=== PATIENT | male | born 2000 | race Caucasian/White ===

== ENCOUNTER → 2023-07-24 13:56 | Outpatient (REF) | payer OTHER, SELFPAY | LOC: RAD 13:56 | PROVIDERS: ATTENDING PHYSICIAN Physician Assistant Medical | DX: N50.811 Right testicular pain (principal); R10.31 Right lower quadrant pain | CPT/HCPCS: 76870; 93976 ==

== ENCOUNTER 2024-05-25 09:46 | Emergency (ER) | payer OTHER, SELFPAY ==
[2024-05-25 10:00] VITALS: BP 110/76
--- NOTE | 2024-05-25 10:30 | ED.GENMED ---
History of Present Illness
<Elodia Summers, SITE DAMAGE PREVENTION TECHNICIAN - Last Filed: 05/26/24 17:44>
General
Chief Complaint: Abdominal Symptoms
Source: patient
Exam Limitations: none
Time Seen by Provider: 05/25/24 10:28
Nursing documentation reviewed up to this point in time: agreed with
History of Present Illness
History of Present Illness:
23 yo male presents for n/v/d with stools being 'red' at times. States redness in stools started prior to going to [place]. Mom at bedside begged him not to go due to the bloody diarrhea. Worse V/D started yesterday. Denies fever but has had chills.
Denies CP, SOB, Sukhi abdominal pain.
Last vomiting 30 minutes ago, last diarrhea stool 15 minutes ago.
Review of Systems
<Elodia Summers, SITE DAMAGE PREVENTION TECHNICIAN - Last Filed: 05/26/24 17:44>
Review of Systems
Allergies reviewed?: Yes
All Other Systems: ROS reviewed and negative except as documented in HPI and ROS
Phy Exam
<Elodia Summers, SITE DAMAGE PREVENTION TECHNICIAN - Last Filed: 05/26/24 17:44>
Physical Exam
Physical Exam:
GENERAL: No acute distress. A&Ox3.
CONSTITUTIONAL: Afebrile.
EYES: clear, conjunctivae normal
ENMT: moist mucus membranes, Pharynx nl
RESPIRATORY: Regular respirations, nonlabored, lungs clear.
CARDIOVASCULAR: Regular rate and rhythm, no murmurs, no rubs.
GI: Soft, nontender, normal BS
MUSCULOSKELETAL: Moves with ease. Well perfused.
SKIN: Warm, dry, pink
PSYCH: Normal mood and affect. Well kept, interactive and appropriate
NEUROLOGIC: Awake, alert and oriented. No focal neurological deficits
Course
<Elodia Summers, SITE DAMAGE PREVENTION TECHNICIAN - Last Filed: 05/26/24 17:44>
Orders/Labs/Results
Orders:
Orders
05/25/24 10:05
EKG [Electrocardiogram (*1)] Urgent
Reason for Study: Tachycardia
05/25/24 10:06
EKG- Treatment ONCE
05/25/24 10:36
0.9% Sodium Chloride 1000 ml [Nss] 1,000 ml IV BOLUS
Ondansetron Injectable [Zofran] 4 mg IV NOW STA
05/25/24 10:50
Complete Blood Count/With Diff Urgent
Comprehensive Metabolic Panel Urgent
Hepatitis A IgM Antibody Urgent
Comment: ADD ON
05/25/24 10:52
C DIFF [C difficile Antigen & Toxins] Urgent
MURIEL Source: Feces/Stool
Specimen Description:
Date Specimen was Collected: 05/25/24
Time Specimen was Collected: 10:51
Norovirus by PCR Urgent
[facility] Source: Feces/Stool
Specimen Description:
Date Specimen was Collected: 05/25/24
Time Specimen was Collected: 10:51
Stool Culture Urgent
[facility]URIEL Source: Feces/Stool
Specimen Description:
Date Specimen was Collected: 05/25/24
Time Specimen was Collected: 10:51
05/25/24 11:36
Add On- LAB Urgent
Tests Added?: Hepatitis panel
05/25/24 12:46
0.9% Sodium Chloride 1000 ml [Nss] 1,000 ml IV BOLUS
Abnormal Lab Results
05/25/24
10:50
WBC 12.6 H 10^3/uL
(4.8-10.8)
RBC 6.62 H 10^6/uL
(4.70-6.10)
Hgb 19.9 H g/dL
(13.0-18.0)
Hct 54.9 H %
(39.0-52.0)
Absolute Neuts (auto) 11.1 H 10^3/uL
(1.4-6.5)
Absolute Lymphs (auto) 0.4 L 10^3/uL
(1.2-3.4)
Absolute Monos (auto) 1.0 H 10^3/uL
(0.1-0.6)
Neutrophils % 87.8 H %
(42.2-75.2)
Lymphocytes % 3.1 L %
(20.5-51.1)
Carbon Dioxide 15 L mmol/L
(22-30)
BUN 39 H mg/dl
(9-20)
Glucose 179 H mg/dl
(70-99)
Total Bilirubin 2.7 H mg/dl
(0.2-1.3)
Total Protein 8.6 H g/dl
(6.3-8.2)
Albumin 5.3 H g/dl
(3.5-5.0)
05/25/24 10:50
05/25/24 10:50
Vital Signs
Initial and Last Documented VS:
Initial Vital Signs
Temp Pulse Resp BP Pulse Ox
97.8 F 158 16 110/76 95
05/25/24 10:00 05/25/24 10:00 05/25/24 10:00 05/25/24 10:00 05/25/24 10:00
Last Documented Vital Signs
Temp Pulse Resp BP Pulse Ox
97.8 F 66 18 111/70 99
05/25/24 10:00 05/25/24 13:44 05/25/24 13:44 05/25/24 13:43 05/25/24 13:44
Evelinlt;Everett Casanova, - Last Filed: 05/25/24 13:36>
Orders/Labs/Results
Orders:
Orders
05/25/24 10:05
EKG [Electrocardiogram (*1)] Urgent
Reason for Study: Tachycardia
05/25/24 10:06
EKG- Treatment ONCE
05/25/24 10:36
0.9% Sodium Chloride 1000 ml [Nss] 1,000 ml IV BOLUS
Ondansetron Injectable [Zofran] 4 mg IV NOW STA
05/25/24 10:50
Complete Blood Count/With Diff Urgent
Comprehensive Metabolic Panel Urgent
Hepatitis A IgM Antibody Urgent
Comment: ADD ON
05/25/24 10:52
C DIFF [C difficile Antigen & Toxins] Urgent
MURIEL Source: Feces/Stool
Specimen Description:
Date Specimen was Collected: 05/25/24
Time Specimen was Collected: 10:51
Norovirus by PCR Urgent
[facility]URI[facility] Source: Feces/Stool
Specimen Description:
Date Specimen was Collected: 05/25/24
Time Specimen was Collected: 10:51
Stool Culture Urgent
MURIEL Source: Feces/Stool
Specimen Description:
Date Specimen was Collected: 05/25/24
Time Specimen was Collected: 10:51
05/25/24 11:36
Add On- LAB Urgent
Tests Added?: Hepatitis panel
05/25/24 12:46
0.9% Sodium Chloride 1000 ml [Nss] 1,000 ml IV BOLUS
Abnormal Lab Results
05/25/24
10:50
WBC 12.6 H 10^3/uL
(4.8-10.8)
RBC 6.62 H 10^6/uL
(4.70-6.10)
Hgb 19.9 H g/dL
(13.0-18.0)
Hct 54.9 H %
(39.0-52.0)
Absolute Neuts (auto) 11.1 H 10^3/uL
(1.4-6.5)
Absolute Lymphs (auto) 0.4 L 10^3/uL
(1.2-3.4)
Absolute Monos (auto) 1.0 H 10^3/uL
(0.1-0.6)
Neutrophils % 87.8 H %
(42.2-75.2)
Lymphocytes % 3.1 L %
(20.5-51.1)
Carbon Dioxide 15 L mmol/L
(22-30)
BUN 39 H mg/dl
(9-20)
Glucose 179 H mg/dl
(70-99)
Total Bilirubin 2.7 H mg/dl
(0.2-1.3)
Total Protein 8.6 H g/dl
(6.3-8.2)
Albumin 5.3 H g/dl
(3.5-5.0)
05/25/24 10:50
05/25/24 10:50
Vital Signs
Initial and Last Documented VS:
Initial Vital Signs
Temp Pulse Resp BP Pulse Ox
97.8 F 158 16 110/76 95
05/25/24 10:00 05/25/24 10:00 05/25/24 10:00 05/25/24 10:00 05/25/24 10:00
Last Documented Vital Signs
Temp Pulse Resp BP Pulse Ox
97.8 F 66 18 111/70 99
05/25/24 10:00 05/25/24 13:44 05/25/24 13:44 05/25/24 13:43 05/25/24 13:44
<Elodia Summers, SITE DAMAGE PREVENTION TECHNICIAN - Last Filed: 05/26/24 17:44>
MDM/Problems Addressed
Differential Diagnosis Includes:
Norovirus, C diff, Crohn's, infectious colitis, traveller's diarrhea
MDM/Problems Addressed:
23 yo male presents for n/v/d with stools being 'red' at times. States redness in stools started prior to going to [place]. Mom at bedside begged him not to go due to the bloody diarrhea. Worse V/D started yesterday. Denies fever but has had chills.
Denies CP, SOB, Sukhi abdominal pain.
Last vomiting 30 minutes ago, last diarrhea stool 15 minutes ago.
Tachycardic rate 158 sinus initially
EKG: Sinus tachycardia heart rate 126.
11:00 AM:
CBC: WBC 12.6 with left shift
CMP: BUN 39, bicarb 15, glucose 179, total bilirubin 2.7.
Gap: 21
12:30 PM
Patient stools negative for for C. difficile and positive for norovirus. Patient and mother at bedside notified of results
Patient looking much better, cheeks are pink, he states he is feeling better
Case discussed with Dr. Casanova who examined pt and agrees pt stable to go home and follow up with GI.
Considered CT scan abd but pt has no significant abdominal pain, no fever, no significant abnormality in his blood work
Info sent to /GI hotline for close f/u
Stool cultures pending
Rx for Zofran sent to his pharmacy
He is tolerating po fluids
2:00 p.m.
Pt looking well, ambulated out with normal gait
<Elodia Summers SITE DAMAGE PREVENTION TECHNICIAN - Last Filed: 05/26/24 17:44>
*EKG
EKG Intrepretation Date: 05/25/24
Interpretation: abnormal
Heart Rate: 126
Rate: tachycardiac
Rhythm: sinus
[place]: normal axis
Interval: normal interval
QRS Pattern: normal QRS
Ischemia: no ischemia
<Everett Casanova DO - Last Filed: 05/25/24 13:36>
*Pulse Oximetry
Patient hypoxic: no
*Critical Care Note
Total Time (30-74mins, 75-104mins- exclusive of procedures): Not Applicable
ED Attending Note
<Elodia Summers SITE DAMAGE PREVENTION TECHNICIAN - Last Filed: 05/26/24 17:44>
-
Portions of this chart may have been created with voice recognition software.� Occasional wrong word or��sound alike� substitutions may have occurred due to the inherent limitations of voice recognition software.
<Everett Casanova DO - Last Filed: 05/25/24 13:36>
ED Attending Note
Patient seen and examined by attending physician: Yes
I performed the substantive portion of visit, reviewed & personally made and approve the management plan that is documented in note by myself or EPHRAIM.: Yes
ED Attending Note:
23-year-old male who presents with persistent diarrhea. Also reports has been he suspects his blood as has been red tinge. He recently traveled to [place]. He states that it is possible that he had some diarrhea before going to [place] on the unit
with some red tinge to it. On my assessment he has no pain. He states he feels much better after IV fluids. Exam: No tenderness. No distention. Awake and alert. Taking an ice chips on exam. Assessment and plan: Suspect this is infectious
related. Tested positive for norovirus and the rest of bacterial testing is pending. However consideration for inflammatory bowel disease should be made. I recommended he follow-up with gastroenterology. Message will be left on the outpatient
follow-up hotline. He has been seen by them in the past
Discharge Plan
Departure
Patient Disposition: Home (Routine Discharge)
Date of Disposition: 05/25/24
Time of Disposition: 13:36
Patient with high blood pressure during this ER visit?: No
Condition: Good
Discharge Problem:
Acute gastroenteropathy due to Norovirus, Bloody diarrhea
Instructions: Viral gastroenteritis in adults, Dehydration, Adult (DC), Nausea and Vomiting, Adult (DC)
Prescriptions:
New
ondansetron 4 mg tablet,disintegrating
4 mg PO Q8H PRN (Reason: nausea and vomiting) 4 Days Qty: 14 0RF
Referrals:
Dulce Mercado PA-C [Family Provider] -
Petra Marquez MD [Active] - Next open appointment
Activity Restrictions/Additional Instructions:
As we discussed, someone from the GI office will reach out to you to get you a follow-up visit for next week.
Drink at least six 8 ounce bottles of water/fluid (add electrolytes to some of it) daily until your diarrhea improves
Return here immediately for fever above 100.5, chills, worsening bloody diarrhea, abdominal pain, or feeling sicker in any way.
I sent a prescription to your pharmacy for Zofran to take as needed for nausea/vomiting.
Interventions
Interventions:
*Risk Screen - Suicide Last Done: 05/25/24 10:05
*General Assessment Last Done: 05/25/24 13:58
*Neglect/Abuse Screening Last Done: 05/25/24 10:05
*ED- Fall Risk Assessment Last Done: 05/25/24 13:58
*ED COVID-19 Vaccine History Last Done: 05/25/24 11:15
*Nursing Disposition Last Done: 05/25/24 13:58
[facility] Assessment Last Done: 05/25/24 11:15
Discharge Date and Time
Discharge Date/Time: 05/25/24 13:59
Print Language: ARGENTINE
[2024-05-25] MEDS: NSS 1000 IV ×2 (10:49→13:40)
[2024-05-25] MEDS: ZOFRAN 4 MG IV (10:58)
[2024-05-25 11:14] LABS: % Basophils 0.3 % (0-2); % Eosinophils 0.6 % (0-6); % Immature Granulocytes 0.3 % (0-0.5); % Lymphocytes 3.1 % (20.5-51.1); % Monocytes 7.9 % (1.7-9.3); % Neutrophils 87.8 % (42.2-75.2); Absolute Eosinophils 0.1 10^3/uL (0-0.7); Absolute Lymphocytes 0.4 10^3/uL (1.2-3.4); Absolute Neutrophils 11.1 10^3/uL (1.4-6.5); Hematocrit 54.9 % (39.0-52.0); Hemoglobin 19.9 g/dL (13.0-18.0); Mean Corp Hgb Conc. 36.2 g/dL (33.0-37.0); Mean Corpuscular Hgb 30.1 pg (27.0-31.0); Mean Corpuscular Volume 82.9 fL (80.0-94.0); Mean Platelet Volume 9.5 fL (7.4-10.4); Nucleated Red Blood Cells % 0 % (-); Platelet Count 256 10^3/uL (130-400); Red Blood Cell Count 6.62 10^6/uL (4.70-6.10); Red Cell Dist. Width 12.7 % (11.5-14.5); White Blood Cell Count 12.6 10^3/uL (4.8-10.8)
[2024-05-25 11:21] LABS: AST (SGOT) 32 U/L (17-59); Albumin 5.3 g/dl (3.5-5.0); Alkaline Phosphatase 79 U/L (38-126); Blood Urea Nitrogen 39 mg/dl (9-20); Calcium 10.1 mg/dl (8.4-10.2); Carbon Dioxide 15 mmol/L (22-30); Chloride 103 mmol/L (98-107); Glucose 179 mg/dl (70-99); Sodium 139 mmol/L (135-145); Total Bilirubin 2.7 mg/dl (0.2-1.3); Total Protein 8.6 g/dl (6.3-8.2); eGFR > 60.00
[2024-05-25 11:40] LABS: ALT (SGPT) 31 U/L (0-50)
[2024-05-25 11:51] VITALS: BP 117/83
[2024-05-25 12:00] VITALS: BP 120/81
[2024-05-25 13:00] VITALS: BP 122/91
[2024-05-25 13:43] VITALS: BP 111/70; BMI 22.4
[2024-05-27 18:11] LABS: Hepatitis A IgM Antibody Negative (Negative)
== END 2024-05-25 13:59 | disposition home or self-care (01) ==
LOC: EMR 09:46
PROVIDERS: Registered Nurse; EMERGENCY PHYSICIAN Emergency Medicine; FAMILY PHYSICIAN Student in an Organized Health Care Education/Training Program
DX: A08.11 Acute gastroenteropathy due to Norwalk agent (principal); K92.1 Melena; R19.7 Diarrhea, unspecified
CPT/HCPCS: 99283; 96374; 96361; 80053; 85025; 86709; 87045; 87046; 87324; 87427; 87449; 87798; 93005

== ENCOUNTER 2024-09-16 06:24 | Day surgery (SDC) | payer OTHER, SELFPAY | END 2024-09-16 15:41 | disposition home or self-care (01) | LOC: GI 06:24 | PROVIDERS: ATTENDING PHYSICIAN Internal Medicine Gastroenterology | DX: K51.211 Ulcerative (chronic) proctitis with rectal bleeding (principal); R19.7 Diarrhea, unspecified; K62.5 Hemorrhage of anus and rectum; K62.89 Other specified diseases of anus and rectum; Z83.79 Family history of other diseases of the digestive system; K63.9 Disease of intestine, unspecified | CPT/HCPCS: 45380; 88305 ==